=== PATIENT | female | born 1940 | race Caucasian/White ===

== ENCOUNTER → 2017-11-19 | Outpatient (CLI) | payer MEDICARE, BC ==
--- NOTE | 2017-11-19 15:55 | CT ---
EXAMINATION TYPE: CT chest w con DATE OF EXAM: 11/19/2017 COMPARISON: Chest x-ray 04/30/2017 HISTORY: Cough for years CT DLP: 587 mGycm Automated exposure control for dose reduction was used. CONTRAST: CT scan of the chest is performed with IV Contrast, patient injected with 100 mL of Isovue 300. FINDINGS: LUNGS: The lungs are grossly clear, there is no concerning parenchymal mass or nodule identified. T here is no pleural effusion or pneumothorax seen. The tracheobronchial tree is patent. Hyperinflatio n is suggestive of COPD. There are subsegmental pleural-based areas of abnormal attenuation likely po stinflammatory. 3 mm nodule along the posterior segment left lower lobe likely is inflammatory. 3 mm nodule right middle lobe axial image 28. On image 14 along the medial margin of the left upper lobe t here is a 6 mm pulmonary nodule. MEDIASTINUM: There are no greater than 1 cm hilar or mediastinal lymph nodes. No pericardial effusi on is seen. Mild atherosclerotic change of the aorta. No evidence of aneurysm. OTHER: There is a small hiatal hernia and splenic granuloma. Previous gallbladder surgery noted. Ath erosclerotic change of the aorta noted. Surgical change overlying the cervical spine. IMPRESSION: 1. Mild emphysematous changes with predominantly linear and pleural-based areas of abnormal attenuati on involving both lower lobes most typical of atelectasis or scar. 6 mm left upper lobe pulmonary nod ule axial image 14, 3 mm subpleural nodule left lower lobe and right middle lobe are too small to more racterize and could be followed on six-month basis.
== END | disposition home or self-care (01) ==
LOC: RADCTMAIN 11-18 13:44
PROVIDERS: ATTEND Internal Medicine Critical Care Medicine
DX: J43.9 Emphysema, unspecified (principal); R91.1 Solitary pulmonary nodule; J94.8 Other specified pleural conditions
CPT/HCPCS: 82565; 84520; 71260; 36415; Q9967

== ENCOUNTER 2017-11-21 09:46 | Day surgery (SDC) | payer MEDICARE, BC ==
[2017-11-18 11:57] VITALS: BMI 26.4
[2017-11-21] MEDS ORDERED: LACTATED RINGERS 1,000 ML IV SCH (09:53)
[2017-11-21 10:05] VITALS: TEMP 98
[2017-11-21 10:15] LABS: Glucose,Whole Blood 86 mg/dL (75-99)
[2017-11-21] MEDS ORDERED: LACTATED RINGERS 1,000 ML IV ONE (10:16)
[2017-11-21] MEDS ORDERED: LIDOCAINE 1% 20 ML VIAL (10MG/ML) FOR IV START INTRADERMA ONE (10:17)
[2017-11-21] MEDS ORDERED: fentaNYL (PF) 50 MCG/ML 2 ML AMP ONE (12:34)
[2017-11-21] MEDS ORDERED: GLYCOPYRROLATE 0.2 MG/ML 2 ML VIAL ONE (12:34)
[2017-11-21] MEDS ORDERED: IV FLUID CONTINUATION 1,000 ML IV ONE (12:47)
[2017-11-21] MEDS ORDERED: hydrALAZINE HCL 20 MG/ML 1 ML VIAL IV ONE ×2 (13:05→13:24)
[2017-11-21 13:36] VITALS: BP 174/104; PULSE 92; RESP 16
== END 2017-11-21 14:03 | disposition home or self-care (01) ==
LOC: ORWHC2ENDO 09:46
PROVIDERS: ATTEND Internal Medicine Critical Care Medicine
DX: J44.1 Chronic obstructive pulmonary disease with (acute) exacerbation (principal); Z53.8 Procedure and treatment not carried out for other reasons; F41.1 Generalized anxiety disorder; G89.4 Chronic pain syndrome; I10 Essential (primary) hypertension; Z79.1 Long term (current) use of non-steroidal anti-inflammatories (NSAID); Z79.891 Long term (current) use of opiate analgesic; Z79.51 Long term (current) use of inhaled steroids; Z79.899 Other long term (current) drug therapy; Z79.52 Long term (current) use of systemic steroids; Z88.7 Allergy status to serum and vaccine; K21.9 Gastro-esophageal reflux disease without esophagitis; Z87.891 Personal history of nicotine dependence; Z86.718 Personal history of other venous thrombosis and embolism
CPT/HCPCS: J0360; J3010

== ENCOUNTER → 2017-11-28 | Outpatient (CLI) | payer MEDICARE, BC | END | disposition home or self-care (01) | LOC: LABWHC1 15:20 | PROVIDERS: ATTEND Nurse Practitioner Adult Health | DX: J18.9 Pneumonia, unspecified organism (principal) | CPT/HCPCS: 87070; 87205 ==

== ENCOUNTER → 2017-12-20 | Day surgery (SDC) | payer MEDICARE, BC ==
[2017-12-19 08:22] VITALS: BMI 26.0
[~2017-12-20] MED LIST: LIDOCAINE 1% 20 ML VIAL (10MG/ML) FOR IV START INTRADERMA ONE; LIDOCAINE 2% INJ 20 MG/ML INTRATRACH ONE; PROPOFOL 10 MG/ML 20 ML VIAL IV ONE; Pre Op ABX Message 1 EACH MISC MISCELLANE ONE
[2017-12-20 10:07] VITALS: TEMP 97.1
[2017-12-20] MEDS: LACTATED RINGERS 1,000 ML IV SCH ×2 (10:14→11:15)
--- NOTE | 2017-12-20 11:48 | P.PCN ---
Date of Procedure: 12/20/17 Preoperative Diagnosis: COPD, cough, SOB Postoperative Diagnosis: 1 tracheobronchomalacia 2 . Diffuse tracheal bronchitis Procedure(s) Performed: Flexible bronchoscopy, bronchial alveolar lavage Anesthesia: MAC Surgeon: Freya Mathews Estimated Blood Loss (ml): 0 Pathology: other Condition: stable Disposition: same day Operative Findings: This is a flexible bronchoscopy that was done in the bronchoscopy suite under conscious sedation. Anesthetic that was utilized included propofol. Under sedation, a flexible bronchoscope was inserted through the right nostril. The bronchoscope was advanced through the posterior oropharyx, larynx, epiglottis, arytenoids, false vocal cords and following upper airway structures were within normal limits. A total of 3 mL of humidified to the vocal cords and following that the flexible bronchoscope was passed through the vocal cords into the upper trachea. Immediately, a significant degree of tracheal bronchomalacia was identified in this patient's airways. The subglottic trachea was causing dynamic obstruction with a nonfenestrated trachea was very mobile especially with exhalation maneuvers and coughing. There was evidence of diffuse mucosa erythematous changes and inflammation scattered throughout the patient's airways and this involved the entire trachea, bilateral mainstem bronchi and previous segments of the upper and lower lobes bilaterally. Some looseness for secretions were identified. At times there is a creamy beige in color. The airway inspection was completed. The visualized airways into the trachea, bilateral mainstem bronchi, right upper lobe bronchus, right middle lobe bronchus, right lower lobe bronchus and left upper lobe bronchus and left lower lobe bronchus. Therapeutic it was suctioning was done. Following that the bronchoscope was wedged right middle lobe where total of 80 mL of fluid was infused and 30 cc were suctioned back back. Assessment was blood tinged. Addendum the procedure, the airways were cleared from any residual secretions in the bronchoscope was removed and the patient was transferred recovery in stable condition. The samples will be sent for microbial analysis. The patient will be seeing us back in the office for further instructions and treatment.
[2017-12-20 11:59] VITALS: RESP 20
[2017-12-20 12:28] VITALS: BP 152/88; PULSE 79
[2017-12-20 14:11] LABS: Color,BF Red
[2017-12-20 14:12] LABS: Appearance,BF Bloody; Nucleated Cells, Body Fluid 2600 /uL; RBC, Body Fluid 40200 /uL
[2017-12-20 14:14] LABS: Mononuclear WBC,Body Fluid 3 %; Polynuclear WBC,Body Fluid 97 %; Total Cells Counted,Body Fluid 100
== END ==
LOC: ORWHC2ENDO 09:25
PROVIDERS: ATTEND Internal Medicine Critical Care Medicine
DX: J39.8 Other specified diseases of upper respiratory tract (principal); R91.8 Other nonspecific abnormal finding of lung field; J98.09 Other diseases of bronchus, not elsewhere classified; J40 Bronchitis, not specified as acute or chronic; K21.9 Gastro-esophageal reflux disease without esophagitis; F41.1 Generalized anxiety disorder; I10 Essential (primary) hypertension; G89.4 Chronic pain syndrome; Z87.891 Personal history of nicotine dependence; Z79.51 Long term (current) use of inhaled steroids; Z79.899 Other long term (current) drug therapy; Z79.1 Long term (current) use of non-steroidal anti-inflammatories (NSAID); Z88.7 Allergy status to serum and vaccine; Z91.041 Radiographic dye allergy status
CPT/HCPCS: 87798 ×3; 87496; 87498; 87529; 88108; 88305; 89050; 87252; 87502; 87634; 87070; 87205; 87116; 87102; 87077; 87186; 87206; 31624; J2001; J2704

== ENCOUNTER → 2018-02-19 | Day surgery (SDC) | payer MEDICARE, BC ==
[~2018-02-19] MED LIST changes: +ALBUTEROL NEB (CONC) 2.5 MG/0.5 ML INHALATION ONE; +LACTATED RINGERS 1,000 ML IV ONE; -LIDOCAINE 1% 20 ML VIAL (10MG/ML) FOR IV START INTRADERMA ONE; +LIDOCAINE 1% 20 ML VIAL (10MG/ML) FOR IV START SQ ONE; +LIDOCAINE 1% INJ 10MG/ML (20 ML MDV) ONE; +LIDOCAINE 2% (PF) 20 MG/ML 2 ML AMP INHALATION ONE; +LIDOCAINE VISCOUS 2% 15 ML CUP MUCOUS MEM ONE; +MIDAZOLAM 2 MG/2 ML VIAL ONE; -Pre Op ABX Message 1 EACH MISC MISCELLANE ONE
[2018-02-19 14:09] VITALS: RESP 20; TEMP 97.7
[2018-02-19 16:34] VITALS: BP 173/96; PULSE 91
[2018-02-19 17:53] LABS: Appearance,BF Cloudy; Nucleated Cells, Body Fluid 2485 /uL; RBC, Body Fluid 170 /uL
[2018-02-19 19:07] LABS: Mononuclear WBC,Body Fluid 2 %; Polynuclear WBC,Body Fluid 98 %; Total Cells Counted,Body Fluid 100
--- NOTE | 2018-02-19 20:48 | PCN ---
PROCEDURE NOTE OPERATIVE REPORT: Bronchoscopy, flexible, bronchoalveolar lavage, and random bronchial washings. PREOPERATIVE DIAGNOSES: Chronic cough, tracheomalacia, and excessive bronchial secretions, difficulty clearing secretions. POSTOPERATIVE DIAGNOSES: Chronic cough, tracheomalacia, and excessive bronchial secretions, difficulty clearing secretions. ANESTHESIA: IV conscious sedation. DESCRIPTION OF PROCEDURE: The patient was prepared according to the bronchoscopy protocol. O2 was applied via nasal cannula and via Ventimask. The patient was placed in a supine position, O2 was applied and we monitored the O2 saturation continuously. Blood pressure was intermittently monitored and cardiac rhythm was continuously monitored. After adequate IV conscious sedation, the bronchoscope was inserted through a bite block because the nasal mucosa was noted to be very inflamed and narrow, could not easily pass the tip of the bronchoscope through the right or left naris. Again, using the bite block, the bronchoscope was inserted through the bite block down to the area of the oropharynx. Visualization of the vocal cords was noted. The vocal cords were noted to be normal. Lidocaine was applied over the vocal cords, the bronchoscope was advanced further down to the trachea, thorough examination was done of the trachea, sarah, right upper lobe, right lower lobe, right lower lobe, left upper lobe lingula and left lower lobe. There was evidence of mild tracheomalacia noted in the proximal trachea, purulent secretions beige in color noted throughout the bronchial tree, especially in the right middle lobe, right lower lobe, left upper lobe and lingula. Lavage of these areas including the lavage of the right middle lobe, right lower lobe and left lower lobe was done. Then, the fluid was sent for different diagnostic studies. Other areas were irrigated and suctioned minimal purulent secretions from other areas of the airways. Procedure was well tolerated, no evidence of any immediate complications, blood loss was 0. MMODL / IJN: [id number] /
== END | disposition home or self-care (01) ==
LOC: ORWHC2ENDO 13:44
PROVIDERS: ATTEND Internal Medicine
DX: J44.9 Chronic obstructive pulmonary disease, unspecified (principal); J39.8 Other specified diseases of upper respiratory tract; F41.1 Generalized anxiety disorder; K21.9 Gastro-esophageal reflux disease without esophagitis; G89.4 Chronic pain syndrome; I10 Essential (primary) hypertension; Z79.51 Long term (current) use of inhaled steroids; Z79.1 Long term (current) use of non-steroidal anti-inflammatories (NSAID); Z79.899 Other long term (current) drug therapy; Z88.7 Allergy status to serum and vaccine; Z91.041 Radiographic dye allergy status
CPT/HCPCS: 94640; 87798 ×3; 87496; 87498; 87529; 89050; 87252; 87502; 87634; 87070; 87205; 87116; 87102; 87077; 87186; 87206; 31624; J2001 ×3; J2250; J2704

== ENCOUNTER 2018-03-28 09:33 | Day surgery (SDC) | payer MEDICARE, BC ==
[2018-03-25 12:59] VITALS: BMI 25.0
[~2018-03-28 09:33] MED LIST changes: -ALBUTEROL NEB (CONC) 2.5 MG/0.5 ML INHALATION ONE; +DEXAMETHASONE SOD PHOSPHATE 10 MG/ML 1 ML VIAL IV ONE; +HYDROmorphone 0.5 MG/0.5 ML SYRINGE IVP PRN; -LACTATED RINGERS 1,000 ML IV ONE; +LACTATED RINGERS 1,000 ML IV SCH; -LIDOCAINE 1% 20 ML VIAL (10MG/ML) FOR IV START SQ ONE; -LIDOCAINE 1% INJ 10MG/ML (20 ML MDV) ONE; -LIDOCAINE 2% (PF) 20 MG/ML 2 ML AMP INHALATION ONE; -LIDOCAINE 2% INJ 20 MG/ML INTRATRACH ONE; -LIDOCAINE VISCOUS 2% 15 ML CUP MUCOUS MEM ONE; +MIDAZOLAM 2 MG/2 ML VIAL IV PRN; -MIDAZOLAM 2 MG/2 ML VIAL ONE; +ONDANSETRON 4 MG/2 ML VIAL IVP ONE; -PROPOFOL 10 MG/ML 20 ML VIAL IV ONE; +Pre Op ABX Message 1 EACH MISC MISCELLANE ONE
[2018-03-28 09:53] VITALS: TEMP 97.1
--- NOTE | 2018-03-28 11:01 | P.GSHP ---
History of Present Illness H&P Date: 03/28/18 Chief Complaint: Recurrent lung infection 78-year-old female with a history of advanced COPD. Patient has required frequent antibiotic use for the treatment of pneumonia. Patient has poor IV access. We were asked to see this patient for Port-A-Cath placement for the administration of antibiotics intermittently. Past Medical History Past Medical History: Cancer, COPD, Deep Vein Thrombosis (DVT), GERD/Reflux, Hypertension, Osteoarthritis (OA), Pneumonia Additional Past Medical History / Comment(s): hx. skin cancer, chronic cough, hx pancreatitis, hx kidney stones, hiatal hernia, bacteria in lungs pt states hx on trachobronchomalacia History of Any Multi-Drug Resistant Organisms: Other MDRO Past Surgical History: Back Surgery, Cholecystectomy Additional Past Surgical History / Comment(s): cervical fusion with plate back of neck , lithotripsy, james cataracts, repair of detached retina Past Anesthesia/Blood Transfusion Reactions: No Reported Reaction Smoking Status: Former smoker - Past Family History Mother Family Medical History: No Reported History Brother(s) Family Medical History: Cancer Additional Family Medical History / Comment(s): brain, lung Medications and Allergies Home Medications Medication Instructions Recorded Confirmed Type Albuterol Nebulized [Ventolin 2 mg INHALATION QID 01/12/16 03/25/18 History Nebulized] Benzonatate [Tessalon Perles] 2 tab PO DAILY PRN 01/12/16 03/28/18 History Cholecalciferol [Vitamin D3] 1,000 unit PO DAILY 01/12/16 03/25/18 History Diazepam [Valium] 5 mg PO DAILY PRN 01/12/16 03/28/18 History HYDROcodone/APAP 7.5-325MG [Speer 1 tab PO DAILY PRN 01/12/16 03/28/18 History 7.5-325] Ipratropium Nebulized [Atrovent 0.5 mg INHALATION QID 01/12/16 03/25/18 History Nebulized] Meloxicam [Mobic] 7.5 mg PO DAILY 01/12/16 03/25/18 History Omeprazole [PriLOSEC] 20 mg PO DAILY 01/12/16 03/25/18 History Losartan Potassium [Cozaar] 100 mg PO W/SUPPER 11/18/17 03/28/18 History Multivitamins, Thera [Multivitamin 1 tab PO DAILY 11/18/17 03/25/18 History (formulary)] Labetalol HCl 300 mg PO BID 12/19/17 03/25/18 History Albuterol Inhaler [Ventolin Hfa 2 puff INHALATION RT-Q6H 03/25/18 03/25/18 History Inhaler] Fluticasone/Salmeterol [Advair 1 inhalation PO BID 03/25/18 03/25/18 History 500-50 Diskus] Tobramycin (Nebulizer) 1 dose INHALATION BID 03/25/18 03/25/18 History Allergies Allergy/AdvReac Type Severity Reaction Status Date / Time Iodinated Contrast- Oral and Allergy Itching Verified 03/28/18 09:44 IV Dye [Iodinated Contrast Media - IV Dye] Tetanus Vaccines and Toxoid Allergy Itching Verified 03/28/18 09:44 [Tetanus Vaccines & Toxoid] Surgical - Exam Vital Signs Temp Pulse Resp BP Pulse Ox 97.1 F L 88 16 144/69 94 L 03/28/18 09:52 03/28/18 09:52 03/28/18 09:52 03/28/18 09:52 03/28/18 09:52 Physical exam: General: Well-developed, well-nourished HEENT: Normocephalic, sclerae nonicteric Abdomen: Nontender, nondistended Extremities: No edema Neuro: Alert and oriented Assessment and Plan (1) Tracheobronchitis Narrative/Plan: Will proceed with Port-A-Cath placement at this time. Risks of bleeding, infection, DVT, pneumothorax, catheter malfunction, anesthesia related complications were discussed. The patient understands and wishes to proceed. Current Visit: No Status: Acute Code(s): J40 - BRONCHITIS, NOT SPECIFIED ACUTE OR CHRONIC SNOMED Code(s): 20937334
[2018-03-28] MEDS ORDERED: MIDAZOLAM 2 MG/2 ML VIAL ONE (11:17)
[2018-03-28] MEDS ORDERED: PROPOFOL 10 MG/ML 20 ML VIAL IV ONE (11:17)
[2018-03-28] MEDS ORDERED: fentaNYL (PF) 50 MCG/ML 2 ML AMP ONE (11:17)
[2018-03-28] MEDS ORDERED: HEPARIN SODIUM,PORCINE 100 UNIT/ML 5 ML VIAL IV ONE ×3 (11:28→11:41)
[2018-03-28] MEDS ORDERED: LIDOCAINE (PF) 10 MG/ML 2 ML VIAL SQ ONE ×2 (11:29→11:41)
[2018-03-28] MEDS ORDERED: SODIUM CHLORIDE 0.9% 50 ML with ceFAZolin 2,000 MG IV ONE ×2 (11:47)
[2018-03-28] MEDS ORDERED: HYDROcodone/APAP 5-325MG 1 EACH TAB PO PRN (12:07)
[2018-03-28] MEDS ORDERED: NALOXONE 0.4 MG/ML 1 ML VIAL IV PRN (12:07)
[2018-03-28 12:32] VITALS: BP 163/83; PULSE 74; RESP 18
--- NOTE | 2018-03-28 12:34 | XR ---
EXAMINATION TYPE: XR chest 1V confirm line [facility] DATE OF EXAM: 03/28/2018 COMPARISON: 02/18/2018 HISTORY: Post line placement TECHNIQUE: Single frontal view of the chest is obtained. FINDINGS: Postsurgical change overlying the cervical spine and there is a Mediport catheter. Tip ove rlies the SVC. Atherosclerotic change aorta. Hyperinflation suggests COPD. No overt failure or consol idation. No pneumothorax. Diffuse osteopenia and arthropathy of the shoulders. IMPRESSION: 1. Mediport appears in good position with no sizable pneumothorax.
--- NOTE | 2018-03-28 13:06 | FL ---
EXAMINATION TYPE: FL guided central line placemt HISTORY: Fluoroscopy time Impression: 1. Fluoroscopy support provided to the referring physician of 1 second.
--- NOTE | 2018-04-17 10:35 | P.OP ---
Date of Procedure: 04/17/18 Procedure(s) Performed: PREOPERATIVE DIAGNOSIS: Tracheobronchitis POSTOPERATIVE DIAGNOSIS: Same PROCEDURE: Port-A-Cath placement SURGEON: Lucille EBL: Minimal ANESTHESIA: Sedation COMPLICATIONS: None OPERATIVE PROCEDURE: Patient was brought and placed on the operative table in the supine position. The patient was sedated per anesthesia that time. The chest and neck were prepped and draped in usual sterile fashion. The ultrasound probe was used to identify the location of the right internal jugular vein. The skin was localized with lidocaine. The Seldinger needle was advanced into the IJ under ultrasound guidance. The wire was advanced through the needle under fluoroscopic guidance into the superior vena cava. A port pocket was created in the right infraclavicular location. The catheter was tunneled from the wire entrance site to the port pocket. The port was then connected to the catheter. The dilator introducer was threaded over the guidewire. The guidewire and dilator were then removed. The catheter was advanced through the introducer and introducer was then removed. The tip was seen to be in the right atrial junction. Port was flushed with both saline and a Hep-Lock solution. There was good flow both in and out of the port. The port was sutured in underlying tissues using 3-0 silk sutures. The subcutaneous tissues were reapproximated using 3-0 Vicryl sutures and the skin at both locations using 4-0 Monocryl sutures. Steri-Strips and sterile dressings then applied. DISPOSITION: Stable to recovery room
== END 2018-03-28 13:29 | disposition home or self-care (01) ==
LOC: OR 09:33
PROVIDERS: ATTEND Surgery
DX: J40 Bronchitis, not specified as acute or chronic (principal); J18.9 Pneumonia, unspecified organism; J44.9 Chronic obstructive pulmonary disease, unspecified; J39.8 Other specified diseases of upper respiratory tract; J98.09 Other diseases of bronchus, not elsewhere classified; I10 Essential (primary) hypertension; F41.1 Generalized anxiety disorder; K21.9 Gastro-esophageal reflux disease without esophagitis; G89.4 Chronic pain syndrome; Z87.891 Personal history of nicotine dependence; M19.90 Unspecified osteoarthritis, unspecified site; Z86.718 Personal history of other venous thrombosis and embolism; Z87.442 Personal history of urinary calculi; Z79.1 Long term (current) use of non-steroidal anti-inflammatories (NSAID); Z79.891 Long term (current) use of opiate analgesic; Z79.51 Long term (current) use of inhaled steroids; Z79.899 Other long term (current) drug therapy; Z88.7 Allergy status to serum and vaccine; Z91.041 Radiographic dye allergy status
CPT/HCPCS: 77001; 36561; 76937; C1788; J2250; J2001; J1642; J1100; J2405; J3010; J0690; J2704